=== PATIENT | female | born 1930 | race Hispanic/Latino ===

== ENCOUNTER → 2018-01-06 | Outpatient (CLI) | payer MEDICARE | END | disposition home or self-care (01) | LOC: RAH 13:27 | PROVIDERS: ATTEND Podiatrist | DX: E10.51 Type 1 diabetes mellitus with diabetic peripheral angiopathy without gangrene (principal); M20.11 Hallux valgus (acquired), right foot; L03.032 Cellulitis of left toe; L60.0 Ingrowing nail | CPT/HCPCS: 93923 ==